=== PATIENT | female | born 1955 | race Caucasian/White ===

== ENCOUNTER → 2016-07-20 | Outpatient (CLI) | payer OTHER ==
[2016-07-20 12:00] LABS: BASO % 0.3 % (0.0-1.0); EOS # 0.1 K/mm3 (0.0-0.50); EOS % 1.8 % (0.0-3.0); LARGE UNSTAINED CELL # 0.1 K/mm3 (0.0-0.4); LARGE UNSTAINED CELL % 1.6 % (0.0-4.0); LYMPH # 0.9 K/mm3 (1.5-4.5); LYMPH % 19.8 % (24.0-44.0); MEAN CORPUSCULAR HEMOGLOBIN 30.6 pg (27.0-33.0); MEAN CORPUSCULAR HGB CONC 33.9 g/dl (32.0-36.5); MEAN CORPUSCULAR VOLUME 90.5 fl (80.0-96.0); MONO # 0.2 K/mm3 (0.0-0.8); MONO % 4.2 % (0.0-5.0); NEUTROPHILS # 3.1 K/mm3 (1.8-7.7); NEUTROPHILS % 72.4 % (36.0-66.0); PLATELET COUNT, AUTOMATED 185 k/mm3 (150-450); RED CELL DISTRIBUTION WIDTH 13.3 % (11.5-14.5); WHITE BLOOD COUNT 4.3 K/mm3 (4.0-10.0)
[2016-07-20 12:26] LABS: MAGNESIUM LEVEL 1.9 MG/DL (1.8-2.4); POTASSIUM SERUM 3.9 MEQ/L (3.5-5.1)
[2016-07-21 10:38] LABS: CA 125 8.6 U/ML (<30.2)
== END ==
LOC: M LAB 11:21
PROVIDERS: ATTEND Obstetrics & Gynecology
DX: Z85.43 Personal history of malignant neoplasm of ovary (principal)

== ENCOUNTER → 2016-09-30 | Outpatient (CLI) | payer OTHER | LOC: M WUC 15:36 | PROVIDERS: ATTEND Obstetrics & Gynecology | DX: Z85.43 Personal history of malignant neoplasm of ovary (principal) ==

== ENCOUNTER → 2017-05-19 | Outpatient (CLI) | payer OTHER ==
[2017-05-21 16:56] LABS: CARCINOEMBRYONIC ANTIGEN 3.3 NG/ML (<2.5)
[2017-05-21 17:24] LABS: CA 125 9.2 U/ML (<30.2)
[2017-05-21 17:25] LABS: CA19-9 TUMOR MARKER,CARBOHYDRA 40.2 U/ML (<35.0)
== END ==
LOC: M WUC 12:00
DX: Z85.43 Personal history of malignant neoplasm of ovary (principal)

== ENCOUNTER → 2017-09-17 | Outpatient (CLI) | payer OTHER ==
[2017-09-17 17:32] LABS: CA19-9 TUMOR MARKER,CARBOHYDRA 42.2 U/ML (<35.0)
== END ==
LOC: M WUC 14:11
DX: Z08 Encounter for follow-up examination after completed treatment for malignant neoplasm (principal); Z85.43 Personal history of malignant neoplasm of ovary
CPT/HCPCS: 82378

== ENCOUNTER → 2018-04-01 | Outpatient (CLI) | payer OTHER ==
[2018-04-01 19:22] LABS: CA 125 8.7 U/ML (<30.2)
[2018-04-01 19:22] LABS: CA19-9 TUMOR MARKER,CARBOHYDRA 54.1 U/ML (<35.0)
== END ==
LOC: M WUC 11:45
DX: R97.8 Other abnormal tumor markers (principal); D39.11 Neoplasm of uncertain behavior of right ovary
CPT/HCPCS: 86304

== ENCOUNTER → 2018-06-27 | Outpatient (CLI) | payer OTHER ==
[2018-06-28 10:57] LABS: CA 125 8.1 U/ML (<30.2); CA19-9 TUMOR MARKER,CARBOHYDRA 37.5 U/ML (<35.0)
== END ==
LOC: M WUC 11:18
PROVIDERS: ATTEND Obstetrics & Gynecology
DX: Z85.43 Personal history of malignant neoplasm of ovary (principal)

== ENCOUNTER → 2019-01-16 | Outpatient (CLI) | payer OTHER ==
[2019-01-17 13:32] LABS: CA 125 6.6 U/ML (<30.2); CA19-9 TUMOR MARKER,CARBOHYDRA 30.2 U/ML (<35.0)
== END ==
LOC: M WUC 14:57
PROVIDERS: ATTEND Nurse Practitioner
DX: D39.11 Neoplasm of uncertain behavior of right ovary (principal); R97.8 Other abnormal tumor markers

== ENCOUNTER 2022-10-27 17:13 | Emergency (ER) | payer MEDICARE ==
[~2022-10-27] VITALS: Ht 147.3 cm; Wt 79.3 kg
[2022-10-27 17:15] VITALS: TEMP 97.4
[2022-10-27] MEDS ORDERED: ATOR80TA59 (17:24)
[2022-10-27] MEDS ORDERED: CLOP75TA2 (17:24)
[2022-10-27] MEDS ORDERED: ASPI-531 (17:24)
[2022-10-27] MEDS ORDERED: AMLO1TAB25 (17:24)
[2022-10-27] MEDS ORDERED: METF500T13 (17:24)
[2022-10-27] MEDS ORDERED: CLOP75TA2 PO (20:16)
[2022-10-27 20:23] VITALS: BP 158/72; O2SAT 97
== END 2022-10-27 20:28 | disposition home or self-care (01) ==
LOC: M ED 17:13
DX: Z76.0 Encounter for issue of repeat prescription (principal); E11.9 Type 2 diabetes mellitus without complications; I10 Essential (primary) hypertension; Z86.73 Personal history of transient ischemic attack (TIA), and cerebral infarction without residual deficits; Z79.82 Long term (current) use of aspirin; Z79.84 Long term (current) use of oral hypoglycemic drugs; Z79.02 Long term (current) use of antithrombotics/antiplatelets; Z88.2 Allergy status to sulfonamides

== ENCOUNTER → 2023-01-04 | Outpatient (REF) | payer MEDICARE ==
[~2023-01-04] MED LIST: AMLO1TAB25; ASPI-531; ATOR80TA59; CLOP75TA2; CLOP75TA2 PO; METF500T13
[2023-01-06 10:50] LABS: PERCENT SATURATION 13.1 % (13.2-45.0)
[2023-01-06 10:53] LABS: FERRITIN 264.3 NG/ML (7.3-270.7)
== END ==
LOC: M LAB REF 09:38
PROVIDERS: ATTEND Internal Medicine
DX: D64.9 Anemia, unspecified (principal)

== ENCOUNTER → 2023-02-22 | Outpatient (REF) | payer MEDICARE ==
[2023-02-22 17:18] LABS: PERCENT SATURATION 17.6 % (13.2-45.0)
[2023-02-22 17:20] LABS: FERRITIN 199.5 NG/ML (7.3-270.7)
== END ==
LOC: M LAB REF 16:24
PROVIDERS: ATTEND Internal Medicine
DX: D50.9 Iron deficiency anemia, unspecified (principal)

== ENCOUNTER → 2023-08-26 | Outpatient (REF) | payer MEDICARE ==
[2023-08-26 19:21] LABS: PERCENT SATURATION 16.4 % (13.2-45.0)
[2023-08-26 19:24] LABS: FERRITIN 205.9 NG/ML (7.3-270.7)
== END ==
LOC: M LAB REF 16:23
PROVIDERS: ATTEND Internal Medicine
DX: D50.9 Iron deficiency anemia, unspecified (principal)

== ENCOUNTER → 2025-03-27 | Outpatient (REF) | payer MEDICARE ==
[2025-03-27 18:05] LABS: IRON (FE) 47.0 UG/DL (50-170)
[2025-03-27 18:06] LABS: PERCENT SATURATION 15.5 % (13.2-45.0)
== END ==
LOC: M LAB REF 17:18
PROVIDERS: ATTEND Internal Medicine
DX: D50.9 Iron deficiency anemia, unspecified (principal)